=== PATIENT | female | born 1995 | race Caucasian/White ===

== ENCOUNTER 2021-09-19 10:14 | Emergency (ER) | payer MEDICAID, OTHER ==
[~2021-09-19] VITALS: Ht 170.2 cm; Wt 60.3 kg
[~2021-09-19 10:14] MED LIST: IBUP-1773 PO; METR500T PO
[2021-09-19] MEDS ORDERED: AUGMENTIN 875 MG TAB (AMOXICILLIN/CLAVULANATE) PO STA (10:37)
--- NOTE | 2021-09-19 10:49 | ED EENT ---
History of Present Illness General Chief Complaint: Dental Problems/Pain Stated Complaint: FACIAL SWELLING/PAIN Nursing Triage Note: Patient reports right upper dental pain for 3 days, states she woke this morning with right sided facial swelling and increased pain. She reports she had a root canal in the tooth 12 years ago. Source: patient Exam Limitations: no limitations History of Present Illness Date Seen by Provider: September 19, 2021 Time Seen by Provider: 10:19 Initial Comments 26-year-old female with past medical history of dental issues coming in due to right upper mouth dental pain.'s been going on for 3 days, worsening, throbbing, moderate, constant. Has tried ibuprofen and Tylenol which has helped with the pain. Also took a hydrocodone she had laying around the house which helped. Feels like her face was a little bit swollen this morning so she presented to the ER. She does have a dentist, although she has an outstanding bill of around $60 that she needs to pay before she can go back. She is otherwise denying any other acute complaints. LMP was 4 weeks ago. Allergies and Home Medications Allergies Coded Allergies: No Known Drug Allergies (Unverified , 06/03/14) Patient Home Medication List Home Medication List Reviewed: Yes Ibuprofen (Ibuprofen) 600 Mg Tablet, 600 MG PO Q6H Prescribed by: TIFFANIE CARDOSO on 12/12/15 0729 Review of Systems Review of Systems Constitutional: No chills, No fever Eyes: Denies Blurred Vision Ears: No Symptoms Reported Nose: no symptoms reported Mouth: pain Throat: no symptoms reported Respiratory: no symptoms reported Cardiovascular: no symptoms reported Gastrointestinal: no symptoms reported Musculoskeletal: no symptoms reported Skin: no symptoms reported Neurological: No Symptoms Reported Hematologic/Lymphatic: No Symptoms Reported Immunological/Allergic: no symptoms reported All Other Systems Reviewed Negative Unless Noted: Yes Past Kwupbor-Rabodb-Zxuyyp Hx Patient Social History Tobacco Use?: Yes Tobacco type used: Cigarettes Smoking Status: Current Everyday Smoker Substance use?: No Alcohol Use?: Yes Alcohol Frequency: Once in a while Pt feels they are or have been: No Immunizations Up To Date Tetanus Booster (TDap): Unknown PED Vaccines UTD: Yes Seasonal Allergies Seasonal Allergies: No Past Medical History Surgeries: No Last Menstrual Period: Aug 20, 2021 Reproductive Disorders: No Adverse Reaction/Blood Tranf: No Family Medical History Patient reports no known family medical history. Physical Exam Vital Signs Vital Signs - First Documented 5/1/22 10:28 Temp 36.6 Pulse 81 Resp 16 B/P (MAP) 126/84 (98) Pulse Ox 100 O2 Delivery Room Air Height, Weight, BMI Height: 5'6.00" Weight: 159lbs. 2.0oz. 72.256512rq; 20.00 BMI Method:Stated General Appearance: WD/WN, no apparent distress Eyes: bilateral eye normal inspection Ears: bilateral ear auricle normal Nose: normal inspection Mouth/Throat: dental tenderness, mandibular swelling (Trace on the right compared to the left); No tonsillar exudate, No tonsillar swelling, No trismus, No uvula swelling, No voice changes; other (Dental caries) Neck: non-tender, full range of motion, supple, normal inspection Cardiovascular: regular rate, rhythm, no edema, no murmur Respiratory: chest non-tender, lungs clear, normal breath sounds, no respiratory distress, no accessory muscle use Gastrointestinal: normal bowel sounds, non tender, soft; No distended, No guarding, No rebound Neurologic/Psychiatric: no motor/sensory deficits, alert, normal mood/affect Skin: normal color, warm/dry Progress/Results/Core Measures Results/Orders My Orders Orders - ANTONINO ALFARO MD Amoxicillin/Clavulanate Tablet (Augmenti (09/19/21 10:37) Vital Signs/I&O 09/19/21 10:28 Temp 36.6 Pulse 81 Resp 16 B/P (MAP) 126/84 (98) Pulse Ox 100 O2 Delivery Room Air Blood Pressure Mean: 98 Progress Progress Note : Progress Note 26-year-old female with above history coming in due to what she states is dental pain on the right upper part of her mouth. ABCs were intact and vitals were stable on presentation. Physical exam with dental pain where she has a crown, but no palpable abscess is felt. She has a very trace amount of swelling on the right side of her face compared to the left, but is not impressive. No clinical concerns for abscess. We will give her a dose of antibiotics here and have her follow-up with her dentist which she is agreeable to. I believe she is stable for discharge with outpatient follow-up. She was sent home with strict return precautions. Departure Impression Primary Impression: Pain, dental Disposition: HOME, SELF-CARE Condition: Stable Departure-Patient Inst. Decision time for Depature: 10:47 Referrals: [facility] (PCP/Family) Primary Care Physician Patient Instructions: Dental Pain Add. Discharge Instructions: Is very important you follow-up with your dentist to see if they need to remove this tooth. Take the antibiotics as prescribed, and take the ketorolac every 8 hours as needed. Take Tylenol on top of that. Do not mix the ketorolac with ibuprofen or naproxen. Scripts Acetaminophen (Tylenol Extra Strength) 500 Mg Tablet 500 MG PO Q6H for 5 Days, #40 TAB Prov: ANTONINO ALFARO MD 09/19/21 Ketorolac Tromethamine (Ketorolac Tromethamine) 10 Mg Tablet 10 MG PO Q8H for 5 Days, #15 TAB Prov: ANTONINO ALFARO MD 09/19/21 Penicillin V Potassium (Penicillin V Potassium) 500 Mg Tablet 500 MG PO Q6H for 10 Days, #40 TAB Prov: ANTONINO ALFARO MD 09/19/21 Work/School Note: Work Release Form Date Seen in the Emergency Department: September 19, 2021 Return to Work: September 20, 2021 Restrictions: No Restrictions ANTONINO ALFARO MD September 19, 2021 10:49
[2021-09-19] MEDS ORDERED: KETO10TA PO (10:50)
[2021-09-19] MEDS ORDERED: PENI500T PO (10:50)
[2021-09-19] MEDS ORDERED: ACET-2267 PO (10:50)
[2021-09-19 10:59] VITALS: BP 126/84
== END 2021-09-19 10:59 | disposition home or self-care (01) ==
LOC: EDUNIT# 10:14 → ER FS 10:16
DX: K08.89 Other specified disorders of teeth and supporting structures (principal); F17.210 Nicotine dependence, cigarettes, uncomplicated
CPT/HCPCS: 99283

== ENCOUNTER 2021-12-21 20:49 | Emergency (ER) | payer SELFPAY ==
[~2021-12-21] VITALS: Ht 170.1 cm; Wt 61.7 kg
[~2021-12-21 20:49] MED LIST changes: +ACET-2267 PO; +KETO10TA PO; +PENI500T PO
[2021-12-21 20:50] VITALS: BP 132/71
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
== END 2021-12-21 21:12 | disposition home or self-care (01) ==
LOC: EDUNIT# 20:49 → ER FS 20:50
DX: O9A.211 Injury, poisoning and certain other consequences of external causes complicating pregnancy, first trimester (principal); T22.112A Burn of first degree of left forearm, initial encounter; Z28.310 Unvaccinated for COVID-19; Z3A.12 12 weeks gestation of pregnancy; Y27.0XXA Contact with steam and hot vapors, undetermined intent, initial encounter
CPT/HCPCS: 99282

== ENCOUNTER 2022-06-16 05:58 | Inpatient (IN) | payer MEDICAID ==
[2022-06-16] VITALS (20 sets, daily range): BP systolic 106–151; BP diastolic 56–84
[~2022-06-16] VITALS: Ht 167.7 cm; Wt 72.8 kg
--- OUTSIDE RECORDS SUMMARY | 2022-06-16 06:02 | XMS REPORT ---
Author Author [facility] Address Unknown Phone Unavailable Care Team Providers Care Field Adjuster Name Role Phone KARLA Keller Unavailable PROBLEMS Type Condition ICD9-CM Code OEH09-SL Code Onset Dates Condition S tatus W/U Status Risk SNOMED Code Notes Problem Second trimester Z33.1 confirmed 31186655 Problem Normal in first trimester Z34.91 c onfirmed [id number] Problem care in second trimester Z34.92 con firmed [id number] Problem Tobacco use complicating O99.330 c onfirmed [id number] Problem Vaginal lesion N89.8 confirmed 80186 7005 Problem Hematuria, unspecified R31.9 confirmed 52572390 Problem Back spasm M62.830 confirmed 02224725 0 Problem care in third trimester Z34.93 conf irmed [id number] Problem care in first trimester Z34.91 conf irm Problem Missed period N92.6 confirmed 306359 00 Problem PCB (post coital bleeding) N93.0 confirmed 76564072 Problem Irregular menses N92.6 confirmed 801 87090 Problem Prolonged menstruation N92.1 confirmed 175405142 Problem Tobacco dependence F17.200 confirmed 91258531 ALLERGIES No Known Allergies ENCOUNTERS from 1994 to 2022-06-07 Encounter Location Date Provider Diagnosis [facility] [address] [facility] [id number] [place] [address] Jun, KARLA Keller IMMUNIZATIONS Vaccine Route Administration Date Status PRIVATE TDAP (BOOSTRIX) IM Intramuscular October 21, 2015 Adminis tered FLUARIX QUAD (3 & UP)-GSK-2015 IM Intramuscular Apr 29, 2015 Administered FLUARIX QUAD P-FREE 3 AND UP .50 2015 IM Intramuscular Feb 03, 2016 Administered TDAP (FREE) BOOSTRIX Unknown Apr 20, 2022 Refused SOCIAL HISTORY Sex Assigned At : Social History Observation Description Sex Assigned At Unknown Alcohol Screen (Audit-C) Question Answer Notes Did you have a drink containing alcohol in the past year? Ye s Points 3 Interpretation Positive How often did you have 6 or more drinks on one occasio n in the past year? Less than monthly (1 point) How many drinks did you have on a typica l day when you were drinking in the past year? 1 or 2 (0 points) How often did you have a drink containing alcohol in t he past year? Two to four times a month (2 points) Cessation Question Answer Notes Date Tobacco Cessation Provided: 08/24/2020 Sexual History Question Answer Notes Had sex in the past 12 months (vaginal, oral, or anal)? Yes Last menstrual period 09/13/2021 Have you ever had a Sexually transmitted disease? Yes Other? Yes Chlamydia? Yes PHQ2 Question Answer Notes In the last 2 weeks, how often have you had little interest or pleasure in doing things? Not at all In the last 2 weeks, how often have you been feeling down, depressed, or hopeless? Not at all Total PHQ2 Score 0 Tobacco use other than smoking: Question Answer Notes Are you an other tobacco user? No REASON FOR REFERRAL No Information VITAL SIGNS No information MEDICATIONS Medication SIG (Take, Route, Frequency, Duration) Notes Start Da te End Date Status Cyclobenzaprine HCl 5 MG 1 tablet at bedtime as neede d Orally every 12 hours prn back spasm for 5 days Feb, Not-Taking metroNIDAZOLE 500 MG 1 tablet Orally twice a day for 7 days Jan, Not-Taking Lice Killing Maximum Strength 0.33-4 % as directed Externally one kit Not-Taking 27-1 MG 1 tablet Orally Once a day Active Chantix Continuing Month Edilson 1 MG as directed Orally for 28 days start after starter pack Nov, Not-Taking Natroba 0.9 % 1 application Externally Once a day for 1 days Oct, Not-Taking Clindamycin HCl 300 MG 1 capsules Orally twice a day for 7 day(s ) Apr, Not-Taking Fluconazole 150 MG 1 tablet Orally once for 1 day take on l ast day of antibiotics Apr, Not-Taking Chantix Starting Month Edilson 0.5 MG X 11 & 1 MG X 42 as directed Orally for 28 days Nov, Not-Taking Vamousse Lice Treatment - as directed Externally dispense one ki t please Oct, Not-Taking PROCEDURES No Information RESULTS No Results REASON FOR VISIT Requesting lab MEDICAL (GENERAL) HISTORY Type Description Date Hospitalization History child 2016 Goals Section No Information Health Concerns No Information MEDICAL EQUIPMENT No Information MENTAL STATUS No Information FUNCTIONAL STATUS No Information ASSESSMENTS No Information PLAN OF TREATMENT Next Appt Details Provider Name:TIFFANIE CARDOSO, 06-08 03:45:00 PM, [address] [facility], [place], [address], Provider Name:MILDRED Shravan CAROLIN, 2022-10-26 1 0:30:00 AM, [address] [facility], [id number], [place], [address], Insurance Providers Payer Name Payer Address Payer Phone Insured Name Patient Relati onship to Insured Coverage Start Date Coverage End Date Subscriber Number Group Nu mber [employer] [address] [facility] [address] [employer] [facility] [phone] Shelly Camp A Self - patient is the insured [id number] [employer] [address] [facility] [address] Shelly Bragg A Self - patient is the insured 2020 [employer] [address] [facility] [id number] Shelly Camp A Self - patient is the insured 2020 [id number] [facility] 19 [address] [facility] [phone] Shelly Camp A Self - patient is the insured 2021 [id number] 45 RCM Missing insurance scan copy of card into pt doc Shelly Camp A Self - patient is the insured [id number] MEDICATIONS ADMINISTERED Medication Instructions Date of Administration Dosage DEPO PROVERA (150 MG/ML) September, 150 mg DEPO-Medrol Jul, 1 mL DEPO PROVERA (150 MG/ML) Dec, 150 mg DEPO PROVERA (150 MG/ML) Jan, 150 mg DEPO PROVERA (150 MG/ML) May, 150 mg DEPO PROVERA (150 MG/ML) Mar, 150 mg
--- OUTSIDE RECORDS SUMMARY | 2022-06-16 06:02 | XMS REPORT ---
Author Author [facility] Address Unknown Phone Unavailable Care Team Providers Care Triage Rn Name Role Phone KARLA Keller Unavailable PROBLEMS Type Condition ICD9-CM Code PXS86-DY Code Onset Dates Condition S tatus W/U Status Risk SNOMED Code Notes Problem Second trimester Z33.1 confirmed 10801098 Problem Normal in first trimester Z34.91 c onfirmed 12557170 Problem care in second trimester Z34.92 con firmed [id number] Problem Tobacco use complicating O99.330 c onfirmed 269302676 Problem Vaginal lesion N89.8 confirmed 67232 7005 Problem Hematuria, unspecified R31.9 confirmed 51100408 Problem Back spasm M62.830 confirmed 62235261 0 Problem care in third trimester Z34.93 conf irmed 252971797 Problem care in first trimester Z34.91 conf irm Problem Missed period N92.6 confirmed 630408 00 Problem PCB (post coital bleeding) N93.0 confirmed 97704225 Problem Irregular menses N92.6 confirmed 801 59360 Problem Prolonged menstruation N92.1 confirmed 394142646 Problem Tobacco dependence F17.200 confirmed 32771466 ALLERGIES No Known Allergies ENCOUNTERS from 1994 to 2022-05-16 Encounter Location Date Provider Diagnosis [facility] [address] [facility] [id number] [place] [address] May, KARLA Keller Vaginal yeast infect ion B37.3 IMMUNIZATIONS Vaccine Route Administration Date Status FLUARIX QUAD P-FREE 3 AND UP .50 2016 IM Intramuscular Feb 03, 2016 Administered FLUARIX QUAD (3 & UP)-GSK-2015 IM Intramuscular Apr 29, 2015 Administered TDAP (FREE) BOOSTRIX Unknown Apr 20, 2022 Refused PRIVATE TDAP (BOOSTRIX) IM Intramuscular October 21, 2015 Adminis dania SOCIAL HISTORY Sex Assigned At : Social [...] REASON FOR REFERRAL No Information VITAL SIGNS Height 67 in May, Height-cm 170.18 cm May, Weight 139 lbs May, Weight-kg 63.05 kg May, Temperature 97.3 degrees Fahrenheit May, Heart Rate 84 bpm May, Respiratory Rate 18 bpm May, Oximetry 97 % May, BMI 21.77 kg/m2 May, Blood pressure systolic 126 mmHg May, Blood pressure diastolic 70 mmHg May, MEDICATIONS Medication SIG (Take, Route, Frequency, Duration) Notes Start Da te End Date Status metroNIDAZOLE 500 MG 1 tablet Orally twice a day for 7 days 14 Jan, 2022 Not-Taking Cyclobenzaprine HCl 5 MG 1 tablet at bedtime as neede d Orally every 12 hours prn back spasm for 5 days Feb, Not-Taking Fluconazole 150 MG 1 tablet Orally once for 1 day take on l ast day of antibiotics Apr, Not-Taking 27-1 MG 1 tablet Orally Once a day Active Clindamycin HCl 300 MG 1 capsules Orally twice a day for 7 day(s ) Apr, Not-Taking Lice Killing Maximum Strength 0.33-4 % as directed Externally one kit Not-Taking Natroba 0.9 % 1 application Externally Once a day for 1 days Oct, Not-Taking Vamousse Lice Treatment - as directed Externally dispense one ki t please Oct, Not-Taking Chantix Starting Month Edilson 0.5 MG X 11 & 1 MG X 42 as directed Orally for 28 days Nov, Not-Taking Chantix Continuing Month Edilson 1 MG as directed Orally for 28 days start after starter pack Nov, Not-Taking PROCEDURES No Information RESULTS No Results REASON FOR VISIT Vaginal itching /// tested positive for clamidyia / took the antibiotic and it helped / a week later she started having itching and some discharge, Radha BRAR MEDICAL (GENERAL) HISTORY Type Description Date Hospitalization History child 2016 Goals Section No Information Health Concerns No Information MEDICAL EQUIPMENT No Information MENTAL STATUS No Information FUNCTIONAL STATUS No Information ASSESSMENTS Encounter Date Diagnosis Assessment Notes Treatment Notes Treatm ent Clinical Notes May, Vaginal yeast infection (ICD-10 - B37.3) Vaginal Yeast Infection: Care Instructions material was published Recent antibiotic with symptoms strongly suggestive of vaginal yeast infection Will treat empirically with diflucan rtc if not improving PLAN OF TREATMENT Treatment Notes Assessment Notes Clinical Notes Vaginal yeast infection Vaginal Yeast Infection: Car e Instructions material was published Recent antibiotic with symptoms strongly suggestive of vaginal yeast infection Will treat empirically with diflucan rtc if not improving Next Appt Details prn Reason:yeast infection Provider Name:TIFFANIE CARDOSO, 05-18 03:15:00 PM, [address], [place], [address], Provider Name:MILDRED COE, 2022-10-26 1 0:30:00 AM, [address] [facility], [id number], [place], [address], Follow Up:prnyeast infection Insurance Providers Payer Name Payer Address Payer Phone Insured Name Patient Relati onship to Insured Coverage Start Date Coverage End Date Subscriber Number Group Nu mber [employer] [address] [facility] [address] Luis quirosShelly A Self - patient is the insured 2020 RCM Missing insurance scan copy of card into pt doc Shelly Camp A Self - patient is the insured [id number] [employer] [address] [facility] [address] Shelly Camp A Self - patient is the insured 2020 [id number] [employer] [address] [facility] [address] [employer] [facility] [phone] Shelly Camp A Self - patient is the insured [id number] [address] [place] [address] [address] [facility] [phone] Shelly Camp A Self - patient is the insured 2021 [id number] 45 MEDICATIONS ADMINISTERED Medication Instructions Date of Administration Dosage DEPO PROVERA (150 MG/ML) Mar, 150 mg DEPO PROVERA (150 MG/ML) May, 150 mg DEPO PROVERA (150 MG/ML) September, 150 mg DEPO-Medrol Jul, 1 mL DEPO PROVERA (150 MG/ML) Dec, 150 mg DEPO PROVERA (150 MG/ML) Jan, 150 mg
--- OUTSIDE RECORDS SUMMARY | 2022-06-16 06:02 | XMS REPORT ---
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 Name Role Phone AMY BRADFORD Unavailable PROBLEMS Type Condition ICD9-CM Code [id number] Code Onset Dates Condition S tatus W/U Status Risk SNOMED Code Notes Problem Second trimester Z33.1 confirmed 02185451 Problem Normal in first trimester Z34.91 c onfirmed [id number] Problem care in second trimester Z34.92 con firmed [id number] Problem Tobacco use complicating O99.330 c onfirmed [id number] Problem Vaginal lesion N89.8 confirmed 16910 7005 Problem Hematuria, unspecified R31.9 confirmed [id number] Problem Back spasm M62.830 confirmed 11807687 0 Problem care in third trimester Z34.93 conf irmed [id number] Problem care in first trimester Z34.91 conf irm Problem Missed period N92.6 confirmed 143128 00 Problem PCB (post coital bleeding) N93.0 confirmed 60123119 Problem Irregular menses N92.6 confirmed 801 22868 Problem Prolonged menstruation N92.1 confirmed [id number] Problem Tobacco dependence F17.200 confirmed [id number] ALLERGIES No Known Allergies ENCOUNTERS from 1994 to 2022-06-11 Encounter Location Date Provider Diagnosis [facility] [address] [id number] [place] [address] Jun, AMY BRADFORD Irregular menses N92 .6 IMMUNIZATIONS Vaccine Route Administration Date Status PRIVATE [...] No Information VITAL SIGNS Height 67 in Jun, Height-cm 170.18 cm Jun, Weight 145 lbs Jun, Weight-kg 65.77 kg Jun, Temperature 96.7 degrees Fahrenheit Jun, Heart Rate 84 bpm Jun, Respiratory Rate 20 bpm Jun, Oximetry 96 % Jun, BMI 22.71 kg/m2 Jun, Blood pressure systolic 112 mmHg Jun, Blood pressure diastolic 64 mmHg Jun, MEDICATIONS Medication SIG (Take, Route, Frequency, Duration) Notes Start Da te End Date Status metroNIDAZOLE 500 MG 1 tablet Orally twice a day for 7 days 14 Jan, 2022 Not-Taking Fluconazole 150 MG 1 tablet Orally once for 1 day take on l ast day of antibiotics Apr, Not-Taking Lice Killing Maximum Strength 0.33-4 % as directed Externally one kit Not-Taking Clindamycin HCl 300 MG 1 capsules Orally twice a day for 7 day(s ) Apr, Not-Taking Natroba 0.9 % 1 application Externally Once a day for 1 days Oct, Not-Taking Cyclobenzaprine HCl 5 MG 1 tablet at bedtime as neede d Orally every 12 hours prn back spasm for 5 days Feb, Not-Taking Chantix Continuing Month Edilson 1 MG as directed Orally for 28 days start after starter pack Nov, Not-Taking 27-1 MG 1 tablet Orally Once a day Active Chantix Starting Month Edilson 0.5 MG X 11 & 1 MG X 42 as directed Orally for 28 days Nov, Not-Taking Vamousse Lice Treatment - as directed Externally dispense one ki t please Oct, Not-Taking PROCEDURES No Information RESULTS No Results REASON FOR VISIT Pt states she has been having having excessive periods. States she has never be en normal since starting period at age 15. She has been having a period since and off since Apr. Has tried several controls to help regulate but has h ad no luck. giulia hunt MEDICAL (GENERAL) HISTORY Type Description Date Hospitalization History child 2016 Goals Section No Information Health Concerns No Information MEDICAL EQUIPMENT No Information MENTAL STATUS No Information FUNCTIONAL STATUS No Information ASSESSMENTS Encounter Date Diagnosis Assessment Notes Treatment Notes Treatm ent Clinical Notes Jun, Irregular menses (ICD-10 - N92.6) Labs: Urine HCG, CBC, CMP, TSH, Gonorrhea Chlamydia, and possible FSH/LH and prolactin Meds: Change Orthotrycycline to sprintec Jun, Other Patient seen an d examined with MS4, agree with above documentation - Will trial a different OCP and see if bleeding improves - If bleeding continues would recommend workup for PCOS PLAN OF TREATMENT Treatment Notes Assessment Notes Clinical Notes Irregular menses Labs: Urine HCG, CBC, CMP, T SH, Gonorrhea Chlamydia, and possible FSH/LH and prolactin Meds: Change Orthotrycycline to sprintec Next Appt Details 6 Months with Yoko if bleeding continue s Reason: Provider Name:TIFFANIE CARDOSO, 06-15 02:15:00 PM, [address], [place], [address], Provider Name:MILDRED COE, 2022-10-26 1 0:30:00 AM, [address] [facility], [id number], [place], [address], Insurance Providers Payer Name Payer Address Payer Phone Insured Name Patient Relati onship to Insured Coverage Start Date Coverage End Date Subscriber Number Group Nu mber [employer]ARON [address] [facility] [phone] Shelly Camp A Self - patient is the insured 2020 [id number] [employer] [id number] [facility] [address] [employer] [facility] [phone] Shelly Camp A Self - patient is the insured [id number] [facility] 19 [address] [facility] [phone] Shelly Camp A Self - patient is the insured 2021 [id number] [employer] [address] [facility] [place] [address] Shelly Bragg A Self - patient is the insured 2020 RCM Missing insurance scan copy of card into pt doc Shelly Camp A Self - patient is the insured [id number] MEDICATIONS ADMINISTERED Medication Instructions Date of Administration Dosage DEPO PROVERA (150 MG/ML) September, 150 mg DEPO PROVERA (150 MG/ML) Mar, 150 mg DEPO PROVERA (150 MG/ML) Dec, 150 mg DEPO PROVERA (150 MG/ML) Jan, 150 mg DEPO-Medrol Jul, 1 mL DEPO PROVERA (150 MG/ML) May, 150 mg
[2022-06-16] MEDS ORDERED: D5 LR IV SOLUTION 1,000 ML IV SCH (06:15)
[2022-06-16 06:30] LABS: BASOPHILS # (AUTO) 0.1 10^3/uL (0.0-0.1); BASOPHILS % (AUTO) 1 % (0-10); EOSINOPHILS # (AUTO) 0.3 10^3/uL (0.0-0.3); EOSINOPHILS % (AUTO) 2 % (0-10); HEMATOCRIT 37 % (35-52); HEMOGLOBIN 12.2 g/dL (11.5-16.0); LYMPHOCYTES # (AUTO) 3.5 10^3/uL (1.0-4.0); LYMPHOCYTES % (AUTO) 22 % (12-44); MEAN CORPUSCULAR HEMOGLOBIN 29 pg (25-34); MEAN CORPUSCULAR HGB CONC 33 g/dL (32-36); MEAN CORPUSCULAR VOLUME 86 fL (80-99); MONOCYTES # (AUTO) 1.1 10^3/uL (0.0-1.0); MONOCYTES % (AUTO) 7 % (0-12); NEUTROPHILS # (AUTO) 9.9 10^3/uL (1.8-7.8); NEUTROPHILS % (AUTO) 63 % (42-75); PLATELET COUNT 263 10^3/uL (130-400); WHITE BLOOD COUNT 15.7 10^3/uL (4.3-11.0)
[2022-06-16 06:51] LABS: EOSINOPHILS % (MANUAL) 1 %; LYMPHOCYTES % (MANUAL) 26 %; MONOCYTES % (MANUAL) 7 %; MYELOCYTES % 2 %; NEUTROPHILS % (MANUAL) 64 %; RBC MORPH NORMAL
--- NOTE | 2022-06-16 07:00 | History & Physical-OB ---
OB - Chief Complaint & HPI Date/Time Date of Admission: Date of Admission: Jun 16, 2022 at 05:58 Date seen by a Provider: Jun 16, 2022 Time Seen by a Provider: 06:45 Chief Complaint/History OB-Reason for Admission/Chief: Induction of Labor Hx : 2 Hx Para: 1 Expected Date of Delivery: Jun 16, 2022 Gestational Age in Weeks: 39 Gestational Age in Days: 3 Indication for induction: maternal distance Admission Nurse Assessment Rev: Yes History of Labs GBS negative Allergies and Home Medications Allergies Coded Allergies: No Known Drug Allergies (Unverified , 06/03/14) Patient Home Medication List Home Medication List Reviewed: Yes Acetaminophen (Tylenol Extra Strength) 500 Mg Tablet, 500 MG PO Q6H Prescribed by: ANTONINO ALFARO on 09/19/21 1050 Ibuprofen (Ibuprofen) 600 Mg Tablet, 600 MG PO Q6H Prescribed by: TIFFANIE CARDOSO on 12/12/15 0729 Ketorolac Tromethamine (Ketorolac Tromethamine) 10 Mg Tablet, 10 MG PO Q8H Prescribed by: ANTONINO ALFARO on 09/19/21 1050 Penicillin V Potassium (Penicillin V Potassium) 500 Mg Tablet, 500 MG PO Q6H Prescribed by: ANTONINO ALFARO on 09/19/21 1050 OB - History Hx of Present Care: Yes Ultrasounds: Normal mid trimester US Obstetrical Complications: None Medical Complications: None Delivery History Hx Blood Disorders: No Adverse Rxn to Tranfusion: No Patient Past Medical History no chronic medical problems. Immunizations Hepatitis A: No Hepatitis B: No Tetanus Booster (TDap): Unknown OB - Admission Exam Physical Exam HEENT: Moist Membranes Heart: Rhythm Normal Lungs: Clear Abdomen: Gravid Cervical Dilatation: 1cm Effacement: 75% Station: -3 Amniotic Fluid: Clear Accelerations: Accelerations Present Shelter Variability: Average (6-25) Intensity: Mild Johnston Scoring Tool (Modified) Dilation (cm): 1-2cm (1) Effacement (%): 51-79% (2) Descent/Station: -3 (0) Cervix Consistency: Medium(1) Cervix Position: Middle/Mid-Position (1) Add 1 point for: Each previous vaginal delivery (1) Johnston Score: 6 Labs Laboratory Tests Test 06/16/22 06:25 Range/Units White Blood Count 15.7 H 4.3-11.0 10^3/uL Red Blood Count 4.23 3.80-5.11 10^6/uL Hemoglobin 12.2 11.5-16.0 g/dL Hematocrit 37 35-52 % Mean Corpuscular Volume 86 80-99 fL Mean Corpuscular Hemoglobin 29 25-34 pg Mean Corpuscular Hemoglobin Concent 33 32-36 g/dL Red Cell Distribution Width 12.9 10.0-14.5 % Platelet Count 263 130-400 10^3/uL Mean Platelet Volume 11.0 9.0-12.2 fL Immature Granulocyte % (Auto) 5 % Neutrophils (%) (Auto) 63 42-75 % Lymphocytes (%) (Auto) 22 12-44 % Monocytes (%) (Auto) 7 0-12 % Eosinophils (%) (Auto) 2 0-10 % Basophils (%) (Auto) 1 0-10 % Neutrophils # (Auto) 9.9 H 1.8-7.8 10^3/uL Lymphocytes # (Auto) 3.5 1.0-4.0 10^3/uL Monocytes # (Auto) 1.1 H 0.0-1.0 10^3/uL Eosinophils # (Auto) 0.3 0.0-0.3 10^3/uL Basophils # (Auto) 0.1 0.0-0.1 10^3/uL Immature Granulocyte # (Auto) 0.9 H 0.0-0.1 10^3/uL Neutrophils % (Manual) 64 % Lymphocytes % (Manual) 26 % Monocytes % (Manual) 7 % Eosinophils % (Manual) 1 % Myelocytes % 2 % Blood Morphology Comment NORMAL OB - Assessment/Plan/Diagnosis Assessment Assessment: induction of labor Admission Dx 1. IUP at term 39w3d 2. arrhythmia Admission Status: Inpatient Order (span 2 midnights) Reason for Inpatient Admission: L&D Plan Plan: Induction Induction Method: AROM Other Plan -AROM completed -desires epidural -pitocin if necessary -Monitor arrhythmia TIFFANIE CARDOSO MD Jun 16, 2022 07:00
[2022-06-16] MEDS ORDERED: OXYTOCIN PRE-MIX DRIP 500 ML IV SCH ×2 (07:45→11:45)
[2022-06-16] MEDS ORDERED: MEPIVACAINE (CARBOCAINE) 2% 50 ML VIAL ONE (11:06)
--- NOTE | 2022-06-16 11:35 | OB Labor & Delivery Record ---
L&D History Date of Service Date of Service: Jun 16, 2022 History Expected Date of Delivery: Jun 16, 2022 Gestational Age in Weeks: 39 Hx : 2 Hx Para: 2 Complications Events: Routine care Operative Indications (Cesarea: N/A-Vaginal Delivery Other Complications cardiac arrhythmia L&D Stage1 Stage One Onset of Labor - Date: Jun 16, 2022 Onset of Labor - Time: 06:30 Monitors and Tracing Monitor Mode: Internal Heart Rate: 135 Monitor Accelerations: Uniform Monitor Decelerations: Variable Station: -3 Fdc Variability: Average (6-10) Short Term Variability: Present Presentation: Vertex Signs of Distress by FHT Signs of Distress No Rupture of Membranes Spontaneous Ruture of Membrane: No Amniotic Membrane Rupture Time: 0630 Amniotic Membrane Fluid Desc.: Clear L&D Stage2 Stage Two Stage II Date: Jun 16, 2022 Stage II Time: 11:02 Monitors and Tracing Monitor Mode: External Heart Rate: 135 Monitor Accelerations: Uniform Monitor Decelerations: Variable Glycerine Plant Operator Variability: Average (6-10) Short Term Variability: Present Position: Left Occiput Anterior Presentation: Vertex Signs of Distress by FHT Signs of Distress No Cord Descript/Complications Cord Vessel Description: 3 Vessels Delivery Type Delivery Method: Spontaneous Vaginal Anterior Shoulder: Left Episiotomy/Perineal Laceration Laceraction(s)/Extensions: No Sutures Used: Vicryl Degree (describe repair) Right-sided periurethral tear Condition of Delivery 1 minute Comment: 8 5 minute Comment: 9 Condition of Infant Condition of : Living Exam: No Observed Abnormalities Resuscitation Resuscitation: N/A - Spontaneous Resp, Oxygen Blowby Resuscitation Comments: Noted heart rate 100-110. Pulse oximetry after blow-by oxygen mid 90% L&D Stage3 Stage Three Stage III Date: Jun 16, 2022 Stage III Time: 11:07 Pictocin Pitocin ml/hr: 125 Placenta Delivery Placenta Delivery: Spontaneous Delivery Summary Summary Estimated blood loss (mL): 200 Condition of Delivery Examined: Cervix Examined Post Hemorrhage: No Intervention Required None TIFFANIE CARDOSO MD Jun 16, 2022 11:35
[2022-06-16] MEDS ORDERED: TETANUS,DIPTH,PERTUSS P/F (BOOSTRIX) 0.5 ML VIAL IM ONE (11:45)
[2022-06-16] MEDS ORDERED: NALOXONE 0.4 MG/ML 1 ML (NARCAN) VIAL IV PRN (11:45)
[2022-06-16] MEDS ORDERED: MEASLES,MUMPS,RUBELLA 1 EA INJ SQ ONE (11:45)
[2022-06-16] MEDS ORDERED: BENZOCAINE/MENTHOL (DERMOPLAST) 56 ML CAN TP PRN (11:45)
[2022-06-16] MEDS ORDERED: WITCH HAZEL(TUCKS) 40 EA JAR TOP PRN (11:45)
[2022-06-16] MEDS ORDERED: IBUPROFEN 600 MG (MOTRIN) TAB PO ONE (11:54)
[2022-06-16] MEDS: IBUPROFEN 600 MG (MOTRIN) TAB PO SCH ×2 (11:55→18:33)
[2022-06-16] MEDS: ACETAMINOPHEN 500 MG TAB (TYLENOL) PO SCH ×2 (11:55→18:33)
[2022-06-16] MEDS ORDERED: CATHETER FLUSH 10 ML SYR IV SCH ×2 (14:00)
[2022-06-16] MEDS: DOCUSATE SODIUM 100 MG (COLACE) CAP PO SCH (21:13)
[2022-06-17 00:05] VITALS: BP 93/54
[2022-06-17] MEDS: IBUPROFEN 600 MG (MOTRIN) TAB PO SCH ×3 (00:07→13:00)
[2022-06-17] MEDS: ACETAMINOPHEN 500 MG TAB (TYLENOL) PO SCH ×2 (00:07→06:23)
[2022-06-17 04:10] VITALS: BP 120/64
[2022-06-17 05:39] LABS: BASOPHILS # (AUTO) 0.1 10^3/uL (0.0-0.1); BASOPHILS % (AUTO) 1 % (0-10); EOSINOPHILS # (AUTO) 0.4 10^3/uL (0.0-0.3); EOSINOPHILS % (AUTO) 2 % (0-10); HEMATOCRIT 31 % (35-52); HEMOGLOBIN 10.2 g/dL (11.5-16.0); LYMPHOCYTES # (AUTO) 3.9 10^3/uL (1.0-4.0); LYMPHOCYTES % (AUTO) 23 % (12-44); MEAN CORPUSCULAR HEMOGLOBIN 29 pg (25-34); MEAN CORPUSCULAR HGB CONC 33 g/dL (32-36); MEAN CORPUSCULAR VOLUME 87 fL (80-99); MEAN PLATELET VOLUME 10.5 fL (9.0-12.2); MONOCYTES # (AUTO) 1.2 10^3/uL (0.0-1.0); MONOCYTES % (AUTO) 7 % (0-12); NEUTROPHILS # (AUTO) 10.7 10^3/uL (1.8-7.8); NEUTROPHILS % (AUTO) 63 % (42-75); PLATELET COUNT 226 10^3/uL (130-400); WHITE BLOOD COUNT 17.1 10^3/uL (4.3-11.0)
--- NOTE | 2022-06-17 07:27 | Discharge Summary ---
Diagnosis/Chief Complaint Date of Admission Jun 16, 2022 at 05:58 Date of Discharge June 17, 2012 Admission Diagnosis Admission Diagnosis 1. Intrauterine at 39 weeks gestation 2. arrhythmia Discharge Diagnosis 1. Intrauterine at 39 weeks gestation 2. arrhythmia Chief Complaint/HPI Chief Complaint/HPI 27-year-old 2 now term2 who initially presented to labor and delivery for induction at 39 weeks 3 days gestation. Her EDC is June 20, 2022 Her care was essentially uneventful. Her GBS status performed at 36 weeks was negative. Upon presentation there was a arrhythmia noted Discharge Summary-OBS Procedures 1. Spontaneous vaginal delivery 2. Repair of right-sided periurethral tear Discharge Physical Examination Allergies: Coded Allergies: No Known Drug Allergies (Unverified , 06/03/14) Vitals & I&Os Intake and Output 06/17/22 00:00 Intake Total 1000 ml Balance 1000 ml Vital Sign - Last 12Hours Date Time Temp Pulse Resp B/P (MAP) Pulse Ox O2 Delivery O2 Flow Rate FiO2 06/17/22 04:10 36.0 66 18 120/64 (82) 99 Room Air General Appearance: Alert, No Acute Distress Respiratory: Clear to Auscultation Cardiovascular: Regular Rate Abdominal: Soft (with uterus firm) Neuro: Normal Speech Hospital Course Was the Problem List Reviewed?: Yes following admission patient underwent routine antepartum care orders. monitor was watched closely due to the arrhythmia. If it did not show signs of distress. She ultimately required low-dose Pitocin augmentation. She did not request epidural. Eventually she went on to completion and delivered a term viable female with Apgars of 8 at 1 minute and 9 at 5 minutes. Upon inspection she did have a right-sided periurethral tear that was repaired with 3-0 Vicryl. following delivery she underwent routine care orders. Her hemoglobin on day of dismissal of June 17 was 10.2 compared to admission of 12.2. She tolerated regular diet and was ambulatory. She did not have any shortness of breath or chest pain. She was felt ready for dismissal during afternoon of June 17, 2022. She will follow-up with myself at [facility] in 6 weeks. Labs Laboratory Tests 06/17/22 05:27: White Blood Count 17.1H, Red Blood Count 3.54L, Hemoglobin 10.2L, Hematocrit 31L , Mean Corpuscular Volume 87, Mean Corpuscular Hemoglobin 29, Mean Corpuscular Hemoglobin Concent 33, Red Cell Distribution Width 12.8, Platelet Count 226, Mean Platelet Volume 10.5, Immature Granulocyte % (Auto) 5, Neutrophils (%) (Auto) 63, Lymphocytes (%) (Auto) 23, Monocytes (%) (Auto) 7, Eosinophils (%) (Auto) 2, Basophils (%) (Auto) 1, Neutrophils # (Auto) 10.7H, Lymphocytes # (Auto) 3.9, Monocytes # (Auto) 1.2H, Eosinophils # (Auto) 0.4H, Basophils # (Auto) 0.1, Immature Granulocyte # (Auto) 0.8H Discharge Instructions to patient/family Please see electronic discharge instructions given to patient. Discharge Medications Reviewed and agree with Discharge Medication list on patient's Discharge Instruction sheet TIFFANIE CARDOSO MD Jun 17, 2022 07:27
--- NOTE | 2022-06-17 07:30 | Discharge Inst-Women's Service ---
Discharge Inst-Women's Serv Depart Medication/Instructions New, Converted or Re-Newed RX: Other Instructions may take ibuprofen 600 mg every 6 hours for uterine cramping Problems Reviewed?: Yes Consults/Follow Up Additional Follow Up: Yes (with Dr. Cardoso in [address] [facility]) Activity Driving Instructions: No Driving for 1 Week Nothing Inside Vagina: No [place] (for 6 weeks) Diet Discharge Diet: Regular Diet Return to The Hospital For: as below Symptoms to Report to : Bleeding Excessive, Pain Increased, Fever Over 101 Degrees F, Vaginal Discharge Foul For Any Problems or Questions: Contact Your Physician TIFFANIE CARDOSO MD Jun 17, 2022 07:30
[2022-06-17 08:15] VITALS: BP 106/56
[2022-06-17 13:00] VITALS: BP 124/56
[2022-06-17] MEDS: DOCUSATE SODIUM 100 MG (COLACE) CAP PO SCH (13:00)
== END 2022-06-17 16:35 | disposition home or self-care (01) | DRG 807 ==
LOC: LDRP 05:58
PROVIDERS: ADMIT Family Medicine; ATTEND Family Medicine
PROC: 10E0XZZ Delivery of Products of Conception, External Approach (ICD-10-PCS; principal; 2022-06-16)
PROC: 10907ZC Drainage of Amniotic Fluid, Therapeutic from Products of Conception, Via Natural or Artificial Opening (ICD-10-PCS; 2022-06-16)
DX: O76 Abnormality in fetal heart rate and rhythm complicating labor and delivery (principal); Z37.0 Single live birth; Z3A.39 39 weeks gestation of pregnancy
CPT/HCPCS: 36415; 85007; 85025; 85027; 86780; 86850; 86900; 86901

== ENCOUNTER 2022-06-24 16:53 | Emergency (ER) | payer MEDICAID ==
[2022-06-24 17:07] LABS: BASOPHILS # (AUTO) 0.1 10^3/uL (0.0-0.1); BASOPHILS % (AUTO) 1 % (0-10); EOSINOPHILS # (AUTO) 0.4 10^3/uL (0.0-0.3); EOSINOPHILS % (AUTO) 4 % (0-10); HEMATOCRIT 35 % (35-52); HEMOGLOBIN 11.9 g/dL (11.5-16.0); LYMPHOCYTES % (AUTO) 35 % (12-44); MEAN CORPUSCULAR HEMOGLOBIN 29 pg (25-34); MEAN CORPUSCULAR HGB CONC 34 g/dL (32-36); MEAN CORPUSCULAR VOLUME 86 fL (80-99); MEAN PLATELET VOLUME 9.2 fL (9.0-12.2); MONOCYTES # (AUTO) 0.7 10^3/uL (0.0-1.0); MONOCYTES % (AUTO) 6 % (0-12); NEUTROPHILS # (AUTO) 6.1 10^3/uL (1.8-7.8); NEUTROPHILS % (AUTO) 54 % (42-75); PLATELET COUNT 361 10^3/uL (130-400); WHITE BLOOD COUNT 11.4 10^3/uL (4.3-11.0)
--- NOTE | 2022-06-24 17:26 | ED Abdominal Pain ---
General Chief Complaint: (<6 weeks) Stated Complaint: VAGINAL BLEEDING POST Nursing Triage Note: Patient present to the ED at 8 days with c/o heavy vaginal bleeding. Reports she pased a couple egg sized blood clots then had a gush of bleeding that saturated her pad, underpants, and jeans. Denies any severe pain. Does report bleeding has slowed since arriving. No complications with or delivery. Denies any dizziness, shortness of breath, or fever. Source of Information: Patient Exam Limitations: No Limitations (GRETA BEGUM DO) History of Present Illness Date Seen by Provider: Jun 24, 2022 Time Seen by Provider: 17:30 Initial Comments Patient is a 27-year-old, G2, P2 2, 8-day vaginal delivery presents with persistent bright red vaginal bleeding with heavy gushing prior to ED arrival. Patient reports passing large clots and gushing blood this afternoon. She reports occasional uterine cramping. No fever chills, nausea vomiting or sweats. No flank pain. No other symptoms or complaints Timing/Duration: 1/2 Hour Severity/Quality: Other Location: Other Radiation: Other Activities at Onset: Other Modifying Factors: Improves With Other Associated Symptoms: Other (GRETA BEGUM DO) Time Seen by Provider: 20:57 Initial Comments 2056--PT HAS ARRIVED VIA POV FROM [facility], FOR FURTHER EVALUATION OF POST BLEEDING. SHE DELIVERED ON 06/16/[address] CARDOSO SHE IS , AB 1 ( FIRST TRIMESTER, NO D&C OR TREATMENT REQUIRED) . NORMAL VAGINAL DELIVERIES X 2 . NO OR INTRA- COMPLICATIONS WITH HER 2 TERM PREGNANCIES PT IS HAS SLIGHT LOWER ABDOMINAL CRAMPING NO FEVER NO NAUSEA/VOMITING NO CHEST PAIN NO SHORTNESS OF BREATH NO PALPITATIONS NO DIZZINESS OR SYNCOPE NO SWELLING IN LEGS/FEET OR PAIN IN CALVES NO URINARY SYMPTOMS PT HAS HAD NORMAL POST BLEEDING "LIKE A LIGHT PERIOD" SINCE DELIVERY TODAY AROUND 1540, SHE PASSED AN "EGG SIZED CLOT" AND THEN HAD SOME HEAVIER BLEEDING AFTERWARD, AND WENT TO [facility], SHE WAS SENT HERE FOR FURTHER EVALUATION AND ULTRASOUND. PT STATES THE BLEEDING HAS SLOWED DOWN, AND SHE IS NOT CRAMPING MUCH NOW. SHE HAS ONLY BEEN USING VERY THIN PANTY LINERS AND HAS USED A TOTAL OF 5 TODAY, AND ONLY ONE OF THEM WAS SATURATED--WITH THE INCREASED BLEEDING AROUND 1540. PT DID EAT AND DRINK ON THE WAY HERE FROM [place]. PT DOES NOT HAVE AN APPOINTMENT FOR POST EXAM. PT DENIES ANY MEDICAL PROBLEMS, OR HISTORY OF BLEEDING DISORDER PCP: [facility] [place] NURSE WOUND CARE: DR. CARDOSO (EDMAR TOLBERT DO) Allergies and Home Medications Allergies Coded Allergies: No Known Drug Allergies (Unverified , 06/03/14) Patient Home Medication List Home Medication List Reviewed: Yes (GRETA BEGUM DO) Acetaminophen (Tylenol Extra Strength) 500 Mg Tablet, 500 MG PO Q6H Prescribed by: ANTONINO ALFARO on 09/19/21 1050 Ibuprofen (Ibuprofen) 600 Mg Tablet, 600 MG PO Q6H Prescribed by: TIFFANIE CARDOSO on 12/12/15 0729 Misoprostol (Cytotec) 100 Mcg Tablet, 100 MCG PO TID Prescribed by: EDMAR TOBLERT on 06/24/22 2334 Penicillin V Potassium (Penicillin V Potassium) 500 Mg Tablet, 500 MG PO Q6H Prescribed by: ANTONINO ALFARO on 09/19/21 1050 Discontinued Medications Ketorolac Tromethamine (Ketorolac Tromethamine) 10 Mg Tablet, 10 MG PO Q8H Prescribed by: ANTONINO ALFARO on 09/19/21 1050 Review of Systems Review of Systems Constitutional: see HPI Genitourinary: See HPI (GRETA BEGUM DO) Constitutional: no symptoms reported; No dizziness Respiratory: No Symptoms Reported; Denies Shortness of Air Cardiovascular: No Symptoms Reported; Denies Chest Pain, Denies Edema, Denies Irregular Heart Rate, Denies Lightheadedness, Denies Palpitations, Denies Syncope Gastrointestinal: See HPI, Abdominal Pain (SLIGHT LOWER ABDOMINAL CRAMPING); Denies Nausea, Denies Vomiting Genitourinary: See HPI Musculoskeletal: no symptoms reported; No back pain Skin: no symptoms reported Psychiatric/Neurological: No Symptoms Reported; Denies Headache Endocrine: No Symptoms Reported Hematologic/Lymphatic: No Symptoms Reported (EDMAR TOLBERT DO) Past [id number]-Vqvjok-Vzjxyd Hx Patient Social History Tobacco Use?: No Use of E-Cig and/or Vaping dev: No Substance use?: No Alcohol Use?: No Pt feels they are or have been: No (GRETA BEGUM DO) Tobacco Use?: Yes (SMOKES 1 PPD) Tobacco type used: Cigarettes Smoking Status: Current Everyday Smoker Use of E-Cig and/or Vaping dev: No Substance use?: No Alcohol Use?: No (EDMAR TOLBERT DO) Immunizations Up To Date Tetanus Booster (TDap): Unknown PED Vaccines UTD: Yes First/Initial COVID19 Vaccinat: Denies (GRETA BEGUM DO) Seasonal Allergies Seasonal Allergies: No (GRETA BEGUM DO) Past Medical History Surgery/Hospitalization HX: Denies; 8 days Surgeries: No Reproductive Disorders: No Adverse Reaction/Blood Tranf: No (GRETA BEGUM DO) Surgeries: No Respiratory: No Cardiac: No Neurological: No : No Hx : 3 Hx Para: 2 Hx Total # of Abortions (Sp): 1 Reproductive Disorders: No Genitourinary: No Gastrointestinal: No Musculoskeletal: No Endocrine: No HEENT: No Cancer: No Psychosocial: No Integumentary: No Blood Disorders: No (EDMAR TOLBERT DO) Family Medical History Patient reports no known family medical history. Physical Exam Vital Signs Vital Signs - First Documented 06/24/22 16:57 Temp 36.5 Pulse 79 Resp 18 B/P (MAP) 113/69 (84) Pulse Ox 98 O2 Delivery Room Air (TOMASZEDMAR Rodriguez ) Vital Signs Capillary Refill : Less Than 3 Seconds (GRETA BEGUM DO) Height/Weight/BMI Height: 5'6.00" Weight: 159lbs. 2.0oz. 72.563140lx; 25.88 BMI Method:Stated General Appearance: WD/WN, no apparent distress Gastrointestinal: non tender, soft Genital/Rectal: other (External genitalia, bright red blood staining. Cervical os closed, small amount of placenta protruding from os. Bright red blood in cervical vault. No uterine tenderness.) (GRETA BEGUM DO) General Appearance: WD/WN, no apparent distress HEENT: PERRL/EOMI; No pale conjunctivae (R), No pale conjunctivae (L) Neck: normal inspection Respiratory: normal breath sounds, no respiratory distress, no accessory muscle use Cardiovascular: regular rate, rhythm, no murmur Gastrointestinal: non tender, soft Extremities: normal inspection, no pedal edema, no calf tenderness, normal capillary refill Neurologic/Psychiatric: no motor/sensory deficits, alert, normal mood/affect, oriented x 3 Skin: normal color, warm/dry (EDMAR TOLBERT DO) Focused Exam Sepsis Stage: Ruled Out (GRETA BEGUM DO) Progress/Results/Core Measures Results/Orders Lab Results Laboratory Tests Test 06/24/22 17:03 06/24/22 21:15 Range/Units White Blood Count 11.4 H 11.6 H 4.3-11.0 10^3/uL Red Blood Count 4.14 4.12 3.80-5.11 10^6/uL Hemoglobin 11.9 11.8 11.5-16.0 g/dL Hematocrit 35 36 35-52 % Mean Corpuscular Volume 86 87 80-99 fL Mean Corpuscular Hemoglobin 29 29 25-34 pg Mean Corpuscular Hemoglobin Concent 34 33 32-36 g/dL Red Cell Distribution Width 12.4 12.4 10.0-14.5 % Platelet Count 361 331 130-400 10^3/uL Mean Platelet Volume 9.2 9.2 9.0-12.2 fL Immature Granulocyte % (Auto) 1 % Neutrophils (%) (Auto) 54 42-75 % Lymphocytes (%) (Auto) 35 12-44 % Monocytes (%) (Auto) 6 0-12 % Eosinophils (%) (Auto) 4 0-10 % Basophils (%) (Auto) 1 0-10 % Neutrophils # (Auto) 6.1 1.8-7.8 10^3/uL Lymphocytes # (Auto) 4.0 1.0-4.0 10^3/uL Monocytes # (Auto) 0.7 0.0-1.0 10^3/uL Eosinophils # (Auto) 0.4 H 0.0-0.3 10^3/uL Basophils # (Auto) 0.1 0.0-0.1 10^3/uL Immature Granulocyte # (Auto) 0.1 0.0-0.1 10^3/uL (EDMAR TOLBERT DO) My Orders Orders - EDMAR TOLBERT DO Ed Iv/Invasive Line Start (06/24/22 20:57) Monitor-Rhythm Ecg Trace Only (06/24/22 20:57) Cbc No Diff (06/24/22 20:57) Us Non Ob Pelvis Comp/Transvag (06/24/22 20:57) Misoprostol Tablet (Cytotec Tablet) (06/24/22 23:30) (EDMAR TOLBERT DO) Vital Signs/I&O 06/24/22 06/24/22 06/24/22 16:57 19:17 20:58 Temp 36.5 35.1 Pulse 79 71 77 Resp 18 20 20 B/P (MAP) 113/69 (84) 113/70 (84) 111/78 (89) Pulse Ox 98 96 100 O2 Delivery Room Air Room Air (EDMAR TOLBERT DO) Blood Pressure Mean: 84 Progress Progress Note : Progress Note UNEVENTFUL ER STAY PT DID NOT SATURATE ANY PADS DURING ER STAY--IS USING THE SAME PAD SHE HAD ON WHEN SHE LEFT [place], AND CRAMPING HAS RESOLVED VITALS ARE STABLE--NO TACHYCARDIA OR HYPOTENSION REPEAT CBC IS ESSENTIALLY UNCHANGED, WITH HGB LEVELS OF 11.9/11/8, AND NORMAL WBC AND PLATELETS THERE ARE NO SIGNS OF ENDOMETRITIS AT THIS TIME PT IS NOT BLEEDING EXCESSIVELY AT THIS TIME. REVIEWED ER RECORD FROM [place], REVIEWED RECENT ADMIT / DELIVERY RECORDS, TESTS, AND DISCHARGE SUMMARY DISCUSSED TEST RESULTS, ANTICIPATED COURSE, MEDICATIONS, SYMPTOMATIC TREATMENT, NEED FOR FOLLOW UP AND RETURN PRECAUTIONS, WITH PT AND MOTHER (EDMAR TOLBERT DO) Diagnostic Imaging Comments PELVIC ULTRASOUND--PER [facility] VIA FAX AT [id number] -UTERUS IS ENLARGED -THICKENED AND INHOMOGENEOUS ENDOMETRIUM MEASURING 2.7 CM -NO INCREASED VASCULARITY NOTED TO SUGGEST RETAINED PRODUCTS. TECH REPORT--NO RETAINED PRODUCTS. Reviewed: Reviewed by Me (EDMAR TOLBERT DO) Departure Communication (Admissions) vaginal bleeding. Abdomen/pelvis nontender, residual palcenta removed from cervical os. H&H stable. Case reviewed with Dr. Laureano request pelvic ultrasound with possible dilatation and suction versus discharge home on Cytotec depending on results. Given stable vital signs and stable H&H, I am comfortable with the patient being driven by private vehicle. (GRETA BEGUM DO) 0914--SPOKE WITH DR. LAUREANO, NURSE WOUND CARE MANAGER BACKGROUND. REVIEWED LAB AND ULTRASOUND REPORTS, AND NORMAL VITALS. HE ADVISES TO SEND PT HOME WITH CYTOTEC 100 MCG TID, AND PT IS TO FOLLOW UP WITH DR. CARDOSO ON MONDAY. (EDMAR TOLBERT DO) Impression Primary Impression: Delay hemorrhage-unspec Disposition: 01 HOME, SELF-CARE Condition: Stable Transfer Method of Transfer: Private Vehicle (GRETA BEGUM DO) Departure-Patient Inst. Decision time for Depature: 23:32 (EDMAR TOLBERT DO) Referrals: [facility] (PCP/Family) Primary Care Physician TIFFANIE CARDOSO MD Patient Instructions: Bleeding, What to Watch for After You Have a Baby Add. Discharge Instructions: CONTINUE LOTS OF FLUIDS TYLENOL NEEDED FOR PAIN RETURN TO ER IF YOU ARE SOAKING MORE THAN 1 MAXI PAD AN HOUR, OR IF YOU HAVE WORSENING OF PAIN, OR YOU DEVELOP FEVER OVER [address] CARDOSO ON MONDAY FOR FURTHER CARE All discharge instructions reviewed with patient and/or family. Voiced understanding. Scripts Misoprostol (Cytotec) 100 Mcg Tablet 100 MCG PO TID, #10 TAB Prov: EDMAR TOLBERT DO 06/24/22 GRETA BEGUM DO Jun 24, 2022 17:26 EDMAR TOLBERT DO Jun 24, 2022 21:14
[2022-06-24 21:24] LABS: HEMATOCRIT 36 % (35-52); HEMOGLOBIN 11.8 g/dL (11.5-16.0); MEAN CORPUSCULAR HEMOGLOBIN 29 pg (25-34); MEAN CORPUSCULAR HGB CONC 33 g/dL (32-36); MEAN CORPUSCULAR VOLUME 87 fL (80-99); MEAN PLATELET VOLUME 9.2 fL (9.0-12.2); PLATELET COUNT 331 10^3/uL (130-400); WHITE BLOOD COUNT 11.6 10^3/uL (4.3-11.0)
[2022-06-24] MEDS ORDERED: MISO100T2 PO (23:34)
[2022-06-24 23:45] VITALS: BP 102/75
--- NOTE | 2022-06-25 06:08 | Diagnostic Imaging Report ---
PROCEDURE: Pelvic comp/transvaginal sonogram. TECHNIQUE: Complete transabdominal and transvaginal pelvic ultrasound was performed. In addition, limited pelvic Doppler was performed. INDICATION: Patient is 8 days with continued bleeding. The study is performed to evaluate for retained products of conception. Uterus is anteverted measuring 12.3 x 8.2 x 8.1 cm. Endometrium is thickened and heterogeneous. Endometrium measures up to 2.7 cm in thickness. No significant vascularity to the endometrium is identified. Ovaries are not visualized. No adnexal mass or free fluid is detected. IMPRESSION: The endometrium is abnormally thickened and heterogeneous measuring up to 2.7 cm. No internal vascularity is present. There are no findings to suggest vascularized retained products of conception. Dictated by: Dictated on workstation # [id number]
== END 2022-06-24 23:50 | disposition home or self-care (01) ==
LOC: EDUNIT# 16:53 → ER 16:54
DX: O72.2 Delayed and secondary postpartum hemorrhage (principal); O99.335 Smoking (tobacco) complicating the puerperium; F17.210 Nicotine dependence, cigarettes, uncomplicated; Z28.310 Unvaccinated for COVID-19
CPT/HCPCS: 36415; 76830; 76856; 85025; 85027; 93041